=== PATIENT | male | born 1985 | race African-American/Black ===

== ENCOUNTER 2017-04-24 19:22 | Emergency (ER) | payer MEDICAID, OTHER ==
[~2017-04-24] VITALS: Ht 182.9 cm; Wt 72.6 kg
[2017-04-25] VITALS: BP 134/70
== END 2017-04-25 03:56 | disposition home or self-care (01) ==
LOC: ER 19:22
DX: S91.342A Puncture wound with foreign body, left foot, initial encounter (principal); F17.210 Nicotine dependence, cigarettes, uncomplicated; W18.31XA Fall on same level due to stepping on an object, initial encounter; Y93.89 Activity, other specified; Y92.89 Other specified places as the place of occurrence of the external cause; Y99.8 Other external cause status
CPT/HCPCS: 10120; 73620